=== PATIENT | female | born 2000 | race Two or more races ===

== ENCOUNTER 2020-07-02 11:34 | Emergency (ER) | payer MEDICAID, OTHER ==
[~2020-07-02] VITALS: Ht 167.6 cm; Wt 106.6 kg
[2020-07-02 11:38] VITALS: BP 112/62
== END 2020-07-02 13:53 | disposition home or self-care (01) ==
LOC: ER 11:34
DX: S16.1XXA Strain of muscle, fascia and tendon at neck level, initial encounter (principal); S20.211A Contusion of right front wall of thorax, initial encounter; S80.11XA Contusion of right lower leg, initial encounter; V49.59XA Passenger injured in collision with other motor vehicles in traffic accident, initial encounter; Y93.89 Activity, other specified; Y92.488 Other paved roadways as the place of occurrence of the external cause; Y99.8 Other external cause status
CPT/HCPCS: 71046; 72040